=== PATIENT | female | born 1965 | race Caucasian/White ===

== ENCOUNTER 2017-04-22 01:18 | Emergency (ER) | payer MEDICAID ==
[~2017-04-22] VITALS: Ht 165.1 cm; Wt 59.0 kg
[~2017-04-22 01:18] MED LIST: ALPR1TAB2 PO; ASPI-231 PO; GABA-494 PO; INSUPOW XX; LEV500T PO; MORP1CAP31 PO; NOR10T PO
[2017-04-22 02:44] LABS: Basophils # (auto) 0 uL; Basophils % (auto) 0.5 % (0.0-2.0); Eosinophils # (auto) 0.2 uL; Eosinophils % (auto) 2.2 % (0.0-7.0); Hematocrit 42.1 % (36.0-46.0); Hemoglobin 14.3 g/dL (12.2-16.2); Lymphocytes # (auto) 1.8 uL; Lymphocytes % (auto) 23.8 % (10.0-50.0); Mean Corpuscular Hemoglobin 28.2 pg (28.0-32.0); Mean Corpuscular Hgb Conc. 33.9 g/dL (32.0-36.0); Mean Corpuscular Volume 83.3 fL (80.0-100.0); Mean Platelet Volume 8.4 fL (7.4-10.4); Monocytes # (auto) 0.4 uL; Monocytes % (auto) 5.3 % (0.0-12.0); Neutrophils # (auto) 5.2 uL; Neutrophils % (auto) 68.2 % (37.0-80.0); Platelet Count (auto) 230 10^3/uL (140-450); Red Cell Distribution Width 13.3 % (11.6-16.0); White Blood Cell 7.6 10^3/uL (4.4-10.8)
[2017-04-22 03:01] LABS: Albumin 3.4 g/dL (3.4-5.0); Calcium 9.5 mg/dL (8.5-10.1); Potassium 3.5 mmol/L (3.5-5.1)
[2017-04-22 03:03] LABS: Bilirubin, Total 0.3 mg/dL (0.2-1.0); Total Protein 8.5 g/dL (6.4-8.2)
[2017-04-22] MEDS ORDERED: INSLISPI SC (05:41)
[2017-04-22] MEDS ORDERED: MORP1CAP31 PO (05:41)
[2017-04-22] MEDS ORDERED: GABA-497 PO (05:41)
[2017-04-22] MEDS ORDERED: HYDR-531 PO (05:41)
[2017-04-22] MEDS ORDERED: INSLANTI SC (05:41)
[2017-04-22] MEDS ORDERED: ALPR2TAB2 PO (05:41)
[2017-04-22] MEDS ORDERED: PANC3600 OR (05:44)
[2017-04-22] MEDS ORDERED: ONDANSETRON HCL 4 MG/2 ML VIAL IV ONE (07:30)
[2017-04-22] MEDS ORDERED: MORPHINE SULFATE 4 MG/ML SYRG IV ONE (07:30)
[2017-04-22] MEDS ORDERED: ONDANSETRON HCL 4 MG/2 ML VIAL IM ONE (07:45)
[2017-04-22] MEDS ORDERED: MORPHINE SULFATE 4 MG/ML SYRG IM ONE (07:45)
[2017-04-22 07:49] VITALS: BP 170/88
[2017-04-22 08:35] LABS: Urine Bilirubin Negative (Negative); Urine Blood Negative /uL (Negative); Urine Color Yellow (Yellow); Urine Ketone Negative (Negative); Urine Nitrite Negative (Negative); Urine RBC 2 /hpf (0 - 4); Urine Squamous Epithelial Cell FEW /hpf (<5); Urine Urobilinogen Normal (Negative)
[2017-04-22 08:42] LABS: Urine Glucose 4+ mg/dL (Normal)
== END 2017-04-22 08:42 | disposition home or self-care (01) ==
LOC: ER 01:25
DX: K86.1 Other chronic pancreatitis (principal); F10.129 Alcohol abuse with intoxication, unspecified; E11.9 Type 2 diabetes mellitus without complications; K21.9 Gastro-esophageal reflux disease without esophagitis; E78.5 Hyperlipidemia, unspecified; I10 Essential (primary) hypertension; F17.210 Nicotine dependence, cigarettes, uncomplicated; Y90.9 Presence of alcohol in blood, level not specified; Z88.0 Allergy status to penicillin; Z79.4 Long term (current) use of insulin; Z79.82 Long term (current) use of aspirin; Z79.899 Other long term (current) drug therapy; Z76.0 Encounter for issue of repeat prescription
CPT/HCPCS: 36415; 80053; 81001; 82150; 83690; 85025; 96372; 99284; J2270; J2405; J7030

== ENCOUNTER 2017-07-28 20:25 | Emergency (ER) | payer MEDICAID ==
[~2017-07-28] VITALS: Ht 165.1 cm; Wt 58.5 kg
[~2017-07-28 20:25] MED LIST changes: -ALPR1TAB2 PO; +ALPR2TAB2 PO; -ASPI-231 PO; -GABA-494 PO; +GABA-497 PO; +HYDR-531 PO; +INSLANTI SC; +INSLISPI SC; -INSUPOW XX; -LEV500T PO; -NOR10T PO; +PANC3600 OR
[2017-07-28 20:46] VITALS: BP 173/90
== END 2017-07-28 21:55 | disposition left against medical advice (07) ==
LOC: ER 20:28
DX: R10.9 Unspecified abdominal pain (principal); Z53.21 Procedure and treatment not carried out due to patient leaving prior to being seen by health care provider
CPT/HCPCS: 82962; 93005